=== PATIENT | male | born 1945 | race African-American/Black ===

== ENCOUNTER 2020-03-01 09:34 | Inpatient (IN) ==
[2020-03-01] MEDS ORDERED: ONDANSETRON 4 MG/2 ML VIAL IV ONE (23:01)
[2020-03-01] MEDS ORDERED: SODIUM CHLORIDE 0.9% 500 ML IV STA (23:01)
[2020-03-02 01:14] LABS: Hematocrit 43.4 VOL% (42.0-52.0); Hemoglobin 14.5 GM/DL (14.0-18.0); Immature Granulocytes % 0.3 %; Immature Granulocytes Absolute 0.02 #; Lymphocytes # 0.8 10*3/uL (1.4-4.0); Mean Corpuscular HGB Conc 33.4 GM/DL (32-36); Mean Corpuscular Volume 86.3 FL (87-102); Mean Platelet Volume 10.9 FL (9.6-12.0); Monocytes % 6.9 % (1.7-12.7); Neutrophils % 80.8 % (38.7-73.9); Platelet Count 136 T/CUMM (130-400); Red Blood Count 5.03 MC/CUMM (3.8-5.5); Red Cell Distribution Width 13.5 % (9.3-17.3); White Blood Count 6.7 T/CUMM (4-12)
[2020-03-02 01:26] LABS: INR 1.1; PT Patient Result 11.7 SECS (9.8-11.9)
[2020-03-02 01:36] LABS: Bacteria,Urine Occasional /HPF (Few); Bilirubin,Urine Negative (Negative); Blood, Urine Large mg/dL (Negative); Glucose,Urine (UA) Negative (Negative); Hyaline Casts,Urine 8 /LPF (0-3); Ketones,Urine Negative (Negative); Mucus,Urine Occasional /LPF (Occasional); Nitrite,Urine Negative (Negative); Protein,Urine >=500 MG/DL; RBC,Urine 10 /HPF (0-4); Squamous Epithelial Cell,Urine Occasional /HPF (0-10); Urine Appearance Slightly Hazy (Clear); Urine Color Amber (Yellow); WBC,Urine 9 /HPF (0-6)
[2020-03-02 01:45] LABS: Albumin 2.9 G/DL (3.4-5.0); Bilirubin,Total 0.6 MG/DL (0.2-1.0); Calcium 7.7 MG/DL (8.5-10.1); Osmolality,Calculated 287.3 MOS/KG (273-304); Potassium 4.4 MMOL/L (3.5-5.1)
[2020-03-02 01:47] LABS: Troponin I 0.091 NG/ML (0.00-0.045)
[2020-03-02] MEDS ORDERED: SODIUM CHLORIDE 0.9% 500 ML IV STA (01:49)
[2020-03-02] MEDS ORDERED: DEXTROSE 50% 25 GM/50 ML VIAL IV PRN (03:06)
[2020-03-02] MEDS ORDERED: ONDANSETRON 4 MG/2 ML VIAL IV PRN (03:06)
[2020-03-02] MEDS ORDERED: GLUCAGON 1 MG VIAL IM PRN (03:06)
[2020-03-02] MEDS ORDERED: ACETAMINOPHEN 325 MG TABLET PO PRN (03:06)
[2020-03-02] MEDS: cefTRIAXone 1,000 MG in SYRINGE 1 EACH IV SCH (06:15)
[2020-03-02] MEDS: SODIUM CHLORIDE 0.9% 1,000 ML IV SCH ×3 (06:16→18:40)
[2020-03-02 06:27] LABS: Basophils % 0.2 % (0.0-0.8); Hematocrit 44.3 VOL% (42.0-52.0); Hemoglobin 14.7 GM/DL (14.0-18.0); Immature Granulocytes % 0.3 %; Immature Granulocytes Absolute 0.02 #; Lymphocytes # 0.8 10*3/uL (1.4-4.0); Lymphocytes % 14.3 % (21.2-54.2); Mean Corpuscular HGB Conc 33.2 GM/DL (32-36); Mean Corpuscular Volume 87.7 FL (87-102); Mean Platelet Volume 11.1 FL (9.6-12.0); Monocytes % 6.3 % (1.7-12.7); Neutrophils % 78.9 % (38.7-73.9); Platelet Count 123 T/CUMM (130-400); Red Blood Count 5.05 MC/CUMM (3.8-5.5); Red Cell Distribution Width 13.5 % (9.3-17.3); White Blood Count 5.9 T/CUMM (4-12)
[2020-03-02 06:43] LABS: Calcium 8.7 MG/DL (8.5-10.1); Osmolality,Calculated 281.7 MOS/KG (273-304); Potassium 3.9 MMOL/L (3.5-5.1)
[2020-03-02 06:48] LABS: Ferritin 978.8 ng/ml (26-388)
[2020-03-02 06:54] LABS: Anisocytosis Slight; Platelet Estimate Adequate
[2020-03-02] MEDS: FAMOTIDINE 20 MG TABLET PO SCH (08:36)
[2020-03-02] MEDS: AZITHROMYCIN 250 MG TABLET PO SCH (08:36)
[2020-03-02] MEDS: ASPIRIN EC 81 MG TABLET PO SCH (08:37)
[2020-03-02] MEDS: DEXAMETHASONE 4 MG TABLET PO SCH (08:37)
[2020-03-02] MEDS: TAMSULOSIN 0.4 MG CAPSULE PO SCH (08:37)
[2020-03-02] MEDS: METOPROLOL SUCCINATE XL 50 MG TABLET PO SCH (08:37)
[2020-03-02] MEDS: amLODIPine 5 MG TABLET PO SCH (08:37)
[2020-03-02] MEDS ORDERED: ENOXAPARIN 40 MG/0.4 ML SYRINGE SUBCUT SCH (09:00)
[2020-03-02] MEDS ORDERED: ROSUVASTATIN 10 MG TABLET PO SCH (21:00)
[2020-03-02] MEDS: APIXABAN 5 MG TABLET PO SCH (21:35)
[2020-03-03] MEDS: SODIUM CHLORIDE 0.9% 1,000 ML IV SCH ×2 (04:53→13:21)
[2020-03-03] MEDS: cefTRIAXone 1,000 MG in SYRINGE 1 EACH IV SCH (04:54)
[2020-03-03 06:11] LABS: Hemoglobin 12.9 GM/DL (14.0-18.0); Immature Granulocytes % 0.7 %; Immature Granulocytes Absolute 0.03 #; Lymphocytes # 0.8 10*3/uL (1.4-4.0); Lymphocytes % 16.8 % (21.2-54.2); Mean Corpuscular HGB Conc 33.1 GM/DL (32-36); Mean Corpuscular Volume 87.6 FL (87-102); Mean Platelet Volume 11.1 FL (9.6-12.0); Monocytes % 9.3 % (1.7-12.7); Neutrophils % 73.2 % (38.7-73.9); Platelet Count 126 T/CUMM (130-400); Red Blood Count 4.45 MC/CUMM (3.8-5.5); Red Cell Distribution Width 13.3 % (9.3-17.3); White Blood Count 4.5 T/CUMM (4-12)
[2020-03-03 06:12] LABS: Calcium 8.4 MG/DL (8.5-10.1); Osmolality,Calculated 285.7 MOS/KG (273-304); Potassium 4.6 MMOL/L (3.5-5.1)
[2020-03-03 06:15] LABS: Ferritin 861.7 ng/ml (26-388)
[2020-03-03 06:42] LABS: Band Neutrophils 3 % (0-10); Eosinophils 2 % (0-10); Lymphocytes 16 % (20-55); Platelet Estimate Normal; Segmented Neutrophils 72 % (50-85); Total Cells Counted 100
[2020-03-03 06:43] LABS: Hypochromasia 1+
[2020-03-03] MEDS: ASPIRIN EC 81 MG TABLET PO SCH (10:15)
[2020-03-03] MEDS: amLODIPine 5 MG TABLET PO SCH ×2 (10:15→10:49)
[2020-03-03] MEDS: AZITHROMYCIN 250 MG TABLET PO SCH (10:15)
[2020-03-03] MEDS: FAMOTIDINE 20 MG TABLET PO SCH (10:15)
[2020-03-03] MEDS: DEXAMETHASONE 4 MG TABLET PO SCH (10:16)
[2020-03-03] MEDS: APIXABAN 5 MG TABLET PO SCH (10:16)
[2020-03-03] MEDS: METOPROLOL SUCCINATE XL 50 MG TABLET PO SCH ×2 (10:16→10:49)
[2020-03-03] MEDS: TAMSULOSIN 0.4 MG CAPSULE PO SCH (10:17)
[2020-03-03 16:02] VITALS: BP 106/67
== END 2020-03-03 16:27 | disposition home or self-care (01) | DRG 177 ==
LOC: N.ED 09:34 → N.EDINP 03-02 03:06 → N.2E 03-02 04:35
PROVIDERS: ADMIT Internal Medicine Geriatric Medicine; ATTEND Internal Medicine Geriatric Medicine